=== PATIENT | male | born 2000 | race Two or more races ===

== ENCOUNTER 2022-01-24 22:28 | Emergency (ER) | payer BC, OTHER ==
[~2022-01-24] VITALS: Ht 190.5 cm; Wt 136.0 kg
[2022-01-24 22:28] VITALS: BP 135/86
[2022-01-25] MEDS ORDERED: diphenhdrAMINE HCL 25 MG CAP PO ONE (00:30)
== END 2022-01-25 01:28 | disposition home or self-care (01) ==
LOC: ER 22:28
DX: S50.861A Insect bite (nonvenomous) of right forearm, initial encounter (principal); F12.10 Cannabis abuse, uncomplicated; F17.290 Nicotine dependence, other tobacco product, uncomplicated; W57.XXXA Bitten or stung by nonvenomous insect and other nonvenomous arthropods, initial encounter; Y93.89 Activity, other specified; Y92.89 Other specified places as the place of occurrence of the external cause; Y99.8 Other external cause status